=== PATIENT | male | born 1955 | race Caucasian/White ===

== ENCOUNTER 2017-11-28 21:21 | Emergency (ER) | payer MEDICAID, OTHER ==
[~2017-11-28] VITALS: Ht 175.3 cm; Wt 65.8 kg
[~2017-11-28 21:21] MED LIST: AUGMENTIN 875-1 EAC1 ORAL; CLINDAMYCIN HC300 MG ORAL; NKM
--- NOTE | 2017-11-28 21:32 | Emergency Room Report ---
History of Present Illness General Chief Complaint: Overdose Source: Patient, EMS Present Illness HPI This is a 62-year-old male with a history of head neck cancer. He is not getting treatment for it. He also a history of heroin abuse. He presents with overdose on heroin. He was on a park bench and was unresponsive so security called 911. On arrival, when EMS first the patient, he woke up. Allergies: Coded Allergies: SULFA (SULFONAMIDE ANTIBIOTICS) (Unverified Allergy, Unknown, 08/20/15) SULFAMETHOXAZOLE (Unverified Allergy, Unknown, 08/20/15) TRIMETHOPRIM (Unverified Allergy, Unknown, 08/20/15) Patient History Past Medical History: see triage record, old chart reviewed Past Surgical History: other Pertinent Family History: none Social History: Reports: drug use Immunizations: other Reviewed Nursing Documentation: PMH: Agreed; PSxH: Agreed Nursing Documentation-PMH Hx Hypertension: Yes Hx Cancer: Yes - LEFT EAR Review of Systems Eye: Denies: eye pain, blurred vision ENT: Denies: ear pain, nose congestion, throat swelling Respiratory: Denies: cough, shortness of breath Cardiovascular: Denies: chest pain, palpitations Gastrointestinal: Denies: abdominal pain, diarrhea, nausea, vomiting Musculoskeletal: Denies: back pain, joint pain Skin: Denies: rash Neurological: Denies: headache, numbness Endocrine: Denies: increased thirst, increased urine Hematologic/Lymphatic: Denies: easy bruising All Other Systems: negative except mentioned in HPI Physical Exam Vital Signs Date Time Temp Pulse Resp B/P (MAP) Pulse Ox O2 Delivery O2 Flow Rate FiO2 11/28/17 21:15 100.1 106 14 163/90 100.0 vitals unremarkable except for high blood pressure and temp. Sp02 EP Interpretation: reviewed, normal General Appearance: well appearing, no apparent distress, alert, other - sleepy Head: normocephalic, atraumatic Eyes: bilateral eye PERRL, bilateral eye EOMI ENT: hearing grossly normal, normal pharynx Neck: full range of motion, supple, no meningismus, other - left ear mass Respiratory: chest non-tender, lungs clear, normal breath sounds Cardiovascular #1: regular rate, rhythm, no murmur Gastrointestinal: normal bowel sounds, non tender, no mass, no organomegaly, no bruit, non-distended Musculoskeletal: back normal, gait/station normal, normal range of motion Psychiatric: mood/affect normal Skin: warm/dry Medical Decision Making Diagnostic Impression: Primary Impression: Heroin abuse ER Course Patient with a drug overdose from heroin. He's been awake and does not need Narcan. He's been here for couple hours now. Able to walk to the bathroom without any difficulty. No suicidal thought homicidal thought. No criteria for 5150. This patient is a chronic risk of self injury due to poor impulse control, limited coping skills, and judgment intermittently impaired by intoxication. I believe that the available clinical evidence to suggest that these characteristics derived primarily from personality disorder and are likely very stable over time. Hospitalization would likely attenuate risk of self-harm only during residential period, without lasting risk reduction. Serious self-harm , while possible, would likely be inadvertent, and because of impulsivity, and foreseeable. For these reasons, I do not believe hospitalization would provide meaningful reduction in risk of self-harm. Last Vital Signs Date Time Temp Pulse Resp B/P (MAP) Pulse Ox O2 Delivery O2 Flow Rate FiO2 11/28/17 21:15 100.1 106 14 163/90 100.0 Status: improved Disposition: HOME, SELF-CARE Condition: Stable Patient Instructions: OVERDOSE, Accidental (Adult) Additional Instructions: Stop using drugs. Follow-up in rehabilitation within a week. Return if worse. UYEN DODSON M.D. Nov 28, 2017 21:32
[2017-11-28 22:10] VITALS: BP 149/90
[2017-11-28 23:50] VITALS: BP 149/90
== END 2017-11-29 00:06 | disposition home or self-care (01) ==
LOC: EDBD 21:21 → EMR 21:59
DX: F11.10 Opioid abuse, uncomplicated (principal); I10 Essential (primary) hypertension; Z85.89 Personal history of malignant neoplasm of other organs and systems; Z88.2 Allergy status to sulfonamides
CPT/HCPCS: 99282

== ENCOUNTER 2018-03-24 18:32 | Emergency (ER) | payer OTHER ==
[~2018-03-24] VITALS: Ht 177.8 cm; Wt 56.7 kg
[2018-03-24] MEDS ORDERED: Morphine Sulfate 4mg/ml Inj (IV USE ONLY) IVP ONE (18:45)
[2018-03-24] MEDS ORDERED: Surgicel 4in x 8in TOPIC ONE (18:45)
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
[2018-03-24 19:00] LABS: HEMATOCRIT 22.3 % (42.0-52.0); HEMOGLOBIN 7.3 G/DL (14.2-18.0); MEAN CORPUSCULAR VOLUME 76 FL (80-99); PLATELET COUNT 331 K/UL (150-450); RED BLOOD COUNT 2.94 M/UL (4.70-6.10); RED CELL DISTRIBUTION WIDTH 13.5 % (11.6-14.8); WHITE BLOOD COUNT 8.4 K/UL (4.8-10.8)
[2018-03-24 19:01] VITALS: BP 135/78
[2018-03-24 19:01] LABS: LYMPHOCYTES % (AUTO) 9.8 % (20.0-45.0); MONOCYTES % (AUTO) 8.1 % (1.0-10.0); NEUTROPHILS % (AUTO) 80.2 % (45.0-75.0)
[2018-03-24 19:02] LABS: BASOPHILS % (AUTO) 0.2 % (0.0-2.0); EOSINOPHILS % (AUTO) 1.7 % (0.0-3.0)
--- NOTE | 2018-03-24 19:16 | Diagnostic Imaging Report ---
EXAM: XR Chest, 1 View CLINICAL HISTORY: SOB TECHNIQUE: Frontal view of the chest. COMPARISON: 03/11/18 FINDINGS: Redemonstrated pulmonary hyperexpansion. Question emphysema. This likely explains persistent blunting of the costophrenic sulci. There are chronic-appearing right rib fracture deformities. Unremarkable cardiomediastinal silhouette. No clear vascular congestion or parenchymal consolidation.. IMPRESSION: Pulmonary hyperexpansion and stable chronic changes. No definite acute infiltrate.
[2018-03-24 19:20] LABS: ANION GAP 5 mmol/L (5-15); BLOOD UREA NITROGEN 29 mg/dL (7-18); CALCIUM 12.5 MG/DL (8.5-10.1); CARBON DIOXIDE 31 MMOL/L (21-32); CHLORIDE 100 MMOL/L (98-107); POTASSIUM 4.3 MMOL/L (3.5-5.1); SODIUM 136 MMOL/L (136-145)
[2018-03-24] MEDS ORDERED: Isovue-370 150ml vial INJ PRN (19:30)
[2018-03-24 19:37] LABS: ALANINE AMINOTRANSFERASE 26 U/L (12-78); ALBUMIN 2.7 G/DL (3.4-5.0); ALBUMIN/GLOBULIN RATIO 0.5 (1.0-2.7); ALKALINE PHOSPHATASE 96 U/L (46-116); ASPARTATE AMINO TRANSFERASE 27 U/L (15-37); BILIRUBIN,TOTAL 0.2 MG/DL (0.2-1.0); CKMB 0.7 NG/ML (0.0-3.6); CREATINE KINASE 24 U/L (26-308)
[2018-03-24 20:00] VITALS: BP 165/82
--- NOTE | 2018-03-24 21:28 | Diagnostic Imaging Report ---
EXAM: CT Angiography Chest With Intravenous Contrast CLINICAL HISTORY: SOB TECHNIQUE: Axial computed tomographic angiography images of the chest with intravenous contrast using pulmonary embolism protocol. CTDI is 14.94 mGy and DLP is 599 mGy-cm One or more of the following dose reduction techniques were used: automated exposure control, adjustment of the mA and/or kV according to patient size, use of iterative reconstruction technique. 3D and MIP reconstructed images were created and reviewed. COMPARISON: No relevant prior studies available. FINDINGS: Pulmonary arteries: Unremarkable. No pulmonary embolism. Aorta: No acute findings. No thoracic aortic aneurysm. Lungs: Emphysema. Mild atelectasis. Calcified right lower lobe nodule, most likely from old granulomatous disease. 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 Pleural space: Unremarkable. No significant effusion. No pneumothorax. Heart: Unremarkable. No cardiomegaly. No significant pericardial effusion. No evidence of RV dysfunction. Bones/joints: 6.8 x 2.6 cm soft tissue mass replacing the upper sternum and lower manubrium. Findings are consistent with a malignant process. Chronic bilateral rib fracture deformities. Lymph nodes: Unremarkable. No enlarged lymph nodes. IMPRESSION: 6.8 cm soft tissue mass replacing the upper sternum, consistent with a malignant process. I spoke with the clinician. He states the patient has a known squamous cell carcinoma. This is almost certainly a metastasis. No PE or aortic dissection. [employer] 03/24/18 21:25 Call Doctor Regarding Above results, called Dr. Smith on 03/24 21:24 (-07:00)
[2018-03-24 22:00] VITALS: BP 145/73
[2018-03-25] VITALS: BP 139/73
[2018-03-25 01:15] VITALS: BP 139/73
--- NOTE | 2018-03-26 14:22 | Cardiology Report ---
APPROVED REPORT EKG Measurement Heart [id number] Normal sinus rhythm Normal ECG
== END 2018-03-25 01:15 | disposition short-term general hospital (02) ==
LOC: EDBD 18:32 → EMR 19:01 → EDBEDREQ 19:46 → EMR 03-25 01:15
DX: C79.51 Secondary malignant neoplasm of bone (principal); C44.209 Unspecified malignant neoplasm of skin of left ear and external auricular canal; E83.52 Hypercalcemia; E86.0 Dehydration; R07.9 Chest pain, unspecified; G89.29 Other chronic pain; Z88.0 Allergy status to penicillin; I10 Essential (primary) hypertension; J44.9 Chronic obstructive pulmonary disease, unspecified
CPT/HCPCS: 36415; 71045; 71275; 80053; 82550; 82553; 83880; 84484; 85025; 85379; 86140; 93005; 96361; 96374; 99284; J2270; Q9967